=== PATIENT | female | born 1965 | race Caucasian/White ===

== ENCOUNTER 2018-09-19 16:32 | Emergency (ER) | payer MEDICAID ==
[~2018-09-19] VITALS: Ht 160 cm; Wt 73.3 kg
[2018-09-19 16:47] VITALS: Ht 160 cm; Wt 73.3 kg
[2018-09-19 19:46] VITALS: BP 114/68
== END 2018-09-19 19:46 | disposition home or self-care (01) ==
LOC: ED 16:32
DX: S61.032A Puncture wound without foreign body of left thumb without damage to nail, initial encounter (principal); W31.1XXA Contact with metalworking machines, initial encounter; Y93.89 Activity, other specified; Y92.89 Other specified places as the place of occurrence of the external cause; Y99.8 Other external cause status
CPT/HCPCS: 90715